=== PATIENT | female | born 1980 | race Caucasian/White ===

== ENCOUNTER 2017-05-03 16:59 | Emergency (ER) | payer SELFPAY ==
[~2017-05-03] VITALS: Ht 160 cm; Wt 100.0 kg
[2017-05-03 17:00] VITALS: BP 142/75; PULSE 84; RESP 16; TEMP 98.4; O2SAT 98
--- NOTE | 2017-05-03 17:20 | PD ---
Physical Exam Date Seen by Provider: May 03, 2017 Time Seen by Provider: 17:17 Narrative 36-year-old female presents the emergency department with lower abdominal discomfort, cramping, radiating into the left flank. Patient has dysuria. She has some nausea but denies vomiting. She denies diarrhea. She denies vaginal symptoms. Last menstrual period was possibly 2 weeks ago. Unsure if she is . Pain is about a 6 out of 10. Urinalysis and urine is ordered. Vital signs are reviewed and patient is awaiting bed placement. Data Data Last Documented VS Vital Signs Date Time Temp Pulse Resp B/P (MAP) Pulse Ox O2 Delivery O2 Flow Rate FiO2 05/03/17 17:00 98.4 84 16 142/75 (97) 98 MDM Medical Record Reviewed: Yes Supervised Visit with YAMILE: Yes Condition: Stable Baljinder Koch May 03, 2017 17:20
[2017-05-03] MEDS ORDERED: KETOROLAC TROMETHAMINE 30 MG/ML (IVP) VIAL IV PUSH ONE (18:00)
[2017-05-03] MEDS ORDERED: SODIUM CHLOR 0.9% 1000 ML INJ 1,000 ML IV ONE (18:00)
--- NOTE | 2017-05-03 18:08 | PD ---
HPI Chief Complaint: Abdominal Pain Time Seen by Provider: 17:46 Travel History International Travel<30 days: No Contact w/Intl Traveler<30days: No Traveled to known affect area: No History of Present Illness HPI Patient is a 36 year old female who comes in complaining of abdominal pain that wraps around from her left flank wrapping into her left lower abdomen. She says it started last night at work and has gotten worse. She has not taken anything for pain. She says she has pain in her suprapubic area when she urinates. She denies any burning with urination. She denies fever or chills. She denies nausea or vomiting. FORMERLY [facility], [facility] Past Medical History Medical History: Denies Significant Hx Tetanus Vaccination: < 5 Years ?: Not LMP: 04/12/2017 Past Surgical History Surgical History: No Previous Surgery Social History Alcohol Use: No Tobacco Use: No Substance Use: No Allergies-Medications (Allergen,Severity, Reaction): Coded Allergies: No Known Allergies (Unverified , 05/03/17) Review of Systems Except as stated in HPI: all other systems reviewed are Neg General / Constitutional: No: Fever, Chills HENT: No: Headaches, Lightheadedness Cardiovascular: No: Chest Pain or Discomfort Respiratory: No: Shortness of Breath Gastrointestinal: Positive: Abdominal Pain, No: Nausea, Vomiting Genitourinary: Positive: Flank Pain, No: Dysuria Musculoskeletal: No: Myalgias, Edema, Pain Skin: No Rash, No Change in Pigmentation Neurologic: No: Weakness, Dizziness Physical Exam Narrative GENERAL: Awake and alert, in no acute distress. SKIN: Focused skin assessment warm/dry. HEAD: Atraumatic. Normocephalic. EYES: Pupils equal and round. No scleral icterus. No injection or drainage. ENT: Mucous membranes pink and moist. NECK: Trachea midline. No JVD. CARDIOVASCULAR: Regular rate and rhythm. No murmur appreciated. RESPIRATORY: No accessory muscle use. Clear to auscultation. Breath sounds equal bilaterally. GASTROINTESTINAL: Abdomen soft, nondistended. Left CVA tenderness, tender to the suprapubic area. No rebound or guarding. MUSCULOSKELETAL: No obvious deformities. No clubbing. No cyanosis. No edema. NEUROLOGICAL: Awake and alert. No obvious cranial nerve deficits. Motor grossly within normal limits. Normal speech. PSYCHIATRIC: Appropriate mood and affect; insight and judgment normal. Data Data Last Documented VS Vital Signs Date Time Temp Pulse Resp B/P (MAP) Pulse Ox O2 Delivery O2 Flow Rate FiO2 05/03/17 17:00 98.4 84 16 142/75 (97) 98 Orders Orders Urinalysis - C+S If Indicated (05/03/17 17:20) Ed Urine Pregnancytest Poc (05/03/17 17:20) Iv Access Insert/Monitor (05/03/17 17:52) Complete Blood Count With Diff (05/03/17 17:52) Comprehensive Metabolic Panel (05/03/17 17:52) Ct Abd/Pel W/O Iv Contrast (05/03/17 ) Sodium Chlor 0.9% 1000 Ml Inj (Ns 1000 M (05/03/17 18:00) Ketorolac Inj (Toradol Inj) (05/03/17 18:00) Us Pelvis Comp W Doppler (05/03/17 ) Labs Laboratory Tests Test 05/03/17 17:26 05/03/17 18:00 Urine Color YELLOW Urine Turbidity HAZY Urine pH 7.0 Urine Specific [place] 1.029 Urine Protein TRACE mg/dL Urine Glucose (UA) NEG mg/dL Urine Ketones NEG mg/dL Urine Occult Blood NEG Urine Nitrite NEG Urine Bilirubin NEG Urine Urobilinogen 2.0 MG/DL Urine Leukocyte Esterase SMALL Urine RBC 1 /hpf Urine WBC 4 /hpf Urine Squamous Epithelial Cells 10 /hpf Urine Bacteria RARE /hpf Urine Mucus FEW /lpf Microscopic Urinalysis Comment CULT NOT INDICATED White Blood Count 8.6 TH/MM3 Red Blood Count 4.69 MIL/MM3 Hemoglobin 12.1 GM/DL Hematocrit 36.9 % Mean Corpuscular Volume 78.8 FL Mean Corpuscular Hemoglobin 25.8 PG Mean Corpuscular Hemoglobin Concent 32.8 % Red Cell Distribution Width 15.6 % Platelet Count 356 TH/MM3 Mean Platelet Volume 8.4 FL Neutrophils (%) (Auto) 64.5 % Lymphocytes (%) (Auto) 26.5 % Monocytes (%) (Auto) 6.8 % Eosinophils (%) (Auto) 1.5 % Basophils (%) (Auto) 0.7 % Neutrophils # (Auto) 5.6 TH/MM3 Lymphocytes # (Auto) 2.3 TH/MM3 Monocytes # (Auto) 0.6 TH/MM3 Eosinophils # (Auto) 0.1 TH/MM3 Basophils # (Auto) 0.1 TH/MM3 CBC Comment DIFF FINAL Differential Comment Blood Urea Nitrogen 10 MG/DL Creatinine 0.74 MG/DL Random Glucose 83 MG/DL Total Protein 8.0 GM/DL Albumin 3.2 GM/DL Calcium Level 9.1 MG/DL Alkaline Phosphatase 73 U/L Aspartate Amino Transf (AST/SGOT) 19 U/L Alanine Aminotransferase (ALT/SGPT) 24 U/L Total Bilirubin 0.6 MG/DL Sodium Level 137 MEQ/L Potassium Level 3.5 MEQ/L Chloride Level 103 MEQ/L Carbon Dioxide Level 28.0 MEQ/L Anion Gap 6 MEQ/L Estimat Glomerular Filtration Rate 88 ML/MIN MDM Medical Decision Making Medical Screen Exam Complete: Yes Emergency Medical Condition: Yes Differential Diagnosis UTI vs pyelonephritis vs renal stone Narrative Course Patient is a 36-year-old female comes in complaining of left-sided abdominal pain. Exam shows tenderness along left lower abdomen as well as the left CVA. IV status, labs sent. Labs show no acute abnormalities. CT of the abdomen and pelvis shows a large ovarian cyst. Ultrasound performed shows the large cyst, no other abnormalities. Patient given IV fluids and Toradol. She reports feeling better. She is advised of the results. Advised follow-up with gynecology. Advised to take ibuprofen as needed for pain. Advised to return to the ED as needed for any worsening symptoms. Last 24 hours Impressions Pelvis Ultrasound 05/03/17 0000 Signed Impressions: Service Date/Time: April 20:06 - CONCLUSION: Relatively large but benign-appearing cyst of the left ovary. If felt clinically indicated , follow up ultrasound suggested an 8-12 weeks to confirm resolution. No torsion or other acute abnormality. Teodoro Dallas MD Abdomen/Pelvis CT 05/03/17 0000 Signed Impressions: Service Date/Time: April 18:22 - CONCLUSION: 1. Large but fairly simple appearing cyst of the left or very. No free fluid or associated inflammatory changes. 2. Otherwise negative noncontrast CT of the abdomen and pelvis. No stones or obstruction demonstrated. Teodoro Dallas MD Diagnosis Primary Impression: Ovarian cyst Qualified Codes: N83.202 - Unspecified ovarian cyst, left side Referrals: Rosenda Verma MD Patient Instructions: General Instructions, Ovarian Cyst (ED) Additional Instructions: You have a large cyst on her left ovary. Follow-up with gynecology, to make sure that this resolves. Return to the ED at any time if he have any worsening symptoms, specifically if you have severe pain in her lower abdomen. Take ibuprofen as needed for pain. Disposition: 01 DISCHARGE HOME Condition: Stable Liyah Ontiveros MD May 03, 2017 18:08
[2017-05-03 18:12] LABS: BACTERIA, URINE RARE /hpf; BLOOD, URINE NEG (NEG); COMMENT (UR) CULT NOT INDICATED; CULTURE IF INDICATED CULT NOT INDICATED; GLUCOSE,URINE NEG (NEG); KETONE, URINE NEG (NEG); MUCUS URINE FEW /lpf (OCC); NITRITE,URINE NEG (NEG); SQUAMOUS EPITHELIAL CELL URINE 10 /hpf (0-5); URINE COLOR YELLOW (YELLW/STRAW)
[2017-05-03 18:42] LABS: AUTOMATED NEUTROPHIL # 5.6 TH/MM3 (1.8-7.7); BASOPHIL # 0.1 TH/MM3 (0-0.2); BASOPHIL % 0.7 % (0.0-2.0); EOSINOPHIL # 0.1 TH/MM3 (0-0.4); EOSINOPHIL % 1.5 % (0.0-4.0); HEMATOCRIT 36.9 % (35.0-46.0); HEMO FLAGS DIFF FINAL; LYMPH % 26.5 % (9.0-44.0); LYMPHOCYTE # 2.3 TH/MM3 (1.0-4.8); MEAN CELL VOLUME 78.8 FL (80.0-100.0); MEAN CORPUSCULAR HEMOGLOBIN 25.8 PG (27.0-34.0); MEAN CORPUSCULAR HGB CONC 32.8 % (32.0-36.0); MONO % 6.8 % (0.0-8.0); NEUT % 64.5 % (16.0-70.0); PLATELET COUNT 356 TH/MM3 (150-450); RED BLOOD COUNT 4.69 MIL/MM3 (4.00-5.30); RED CELL DISTRIBUTION WIDTH 15.6 % (11.6-17.2); WHITE BLOOD COUNT 8.6 TH/MM3 (4.0-11.0)
--- NOTE | 2017-05-03 18:44 | RADRPT ---
EXAM DATE/TIME: 05/03/2017 18:22 [facility] COMPARISON: No previous studies available for comparison. INDICATIONS : Patient complains of left flank pain. ORAL CONTRAST: No oral contrast ingested. RADIATION DOSE: 26.83 CTDIvol (mGy) ; High dose protocol MEDICAL HISTORY : None SURGICAL HISTORY : None. ENCOUNTER: Initial ACUITY: 1 day PAIN SCALE: 8/10 LOCATION: Left flank TECHNIQUE: Volumetric scanning of the abdomen and pelvis was performed. Using automated exposure control and ad justment of the mA and/or kV according to patient size, radiation dose was kept as low as reasonably achievable to obtain optimal diagnostic quality images. DICOM format image data is available electro nically for review and comparison. FINDINGS: LOWER LUNGS: The visualized lower lungs are clear. LIVER: Homogeneous density without lesion. There is no dilation of the biliary tree. No calcified gallston es. SPLEEN: Normal size without lesion. PANCREAS: Within normal limits. KIDNEYS: Normal in size and shape. There is no mass, stone, or hydronephrosis. ADRENAL GLANDS: Within normal limits. VASCULAR: There is no aortic aneurysm. BOWEL/MESENTERY: The stomach, small bowel, and colon demonstrate no acute abnormality. There is no free intraperitone al air or fluid. ABDOMINAL WALL: Within normal limits. RETROPERITONEUM: There is no lymphadenopathy. BLADDER: No wall thickening or mass. REPRODUCTIVE: There is a 5.3 cm cyst of the left ovary. No free fluid. INGUINAL: There is no lymphadenopathy or hernia. MUSCULOSKELETAL: Within normal limits for patient age. CONCLUSION: 1. Large but fairly simple appearing cyst of the left or very. No free fluid or associated inflammato ry changes. 2. Otherwise negative noncontrast CT of the abdomen and pelvis. No stones or obstruction demonstrated . Teodoro Dallas MD on May 03, 2017 at 18:41 Board Certified Radiologist. This report was verified electronically.
[2017-05-03 18:57] LABS: ANION GAP 6 MEQ/L (5-15); AST (GOT) 19 U/L (15-37); BLOOD UREA NITROGEN 10 MG/DL (7-18); CHLORIDE 103 MEQ/L (98-107); GLOMERULAR FILTRATION RATE 88 ML/MIN (>89); POTASSIUM 3.5 MEQ/L (3.5-5.1); SODIUM (NA) 137 MEQ/L (136-145)
[2017-05-03 18:58] LABS: ALT (GPT) 24 U/L (10-53)
[2017-05-03 19:00] LABS: ALKALINE PHOSPHATASE 73 U/L (45-117); TOTAL BILIRUBIN ADULT 0.6 MG/DL (0.2-1.0)
--- NOTE | 2017-05-03 20:50 | RADRPT ---
EXAM DATE/TIME: 05/03/2017 20:06 [facility] COMPARISON: CT ABDOMEN & PELVIS W/O CONTRAST, May 03, 2017, 18:22. INDICATIONS : Left sided pelvic pain. MEDICAL HISTORY : Pelvic pain. Nausea. SURGICAL HISTORY : None. ENCOUNTER: Initial ACUITY: 1 day PAIN SCORE: 8/10 LOCATION: Bilateral pelvis MEASUREMENTS: UTERUS: 10.1 x 5.2 x 4.9 cm ENDOMETRIAL STRIPE: 10 mm RIGHT OVARY: 4.0 x 2.3 x 1.5 cm LEFT OVARY: 8.0 x 5.5 x 5.0 cm FINDINGS: UTERUS: The myometrium has homogeneous echotexture without mass. RIGHT OVARY: Ovary contains no mass or significant cystic lesion. Doppler interrogation indicates blood flow prese nt. LEFT OVARY: 4.9 x 4.3 x 4.9 cm cyst noted. Blood flow present. MISCELLANEOUS: No free fluid. CONCLUSION: Relatively large but benign-appearing cyst of the left ovary. If felt clinically indicated, follow up ultrasound suggested an 8-12 weeks to confirm resolution. No torsion or other acute abnormality. Teodoro Dallas MD on May 03, 2017 at 20:47 Board Certified Radiologist. This report was verified electronically.
== END 2017-05-03 21:20 | disposition home or self-care (01) ==
LOC: NEPD 16:59
DX: N83.202 Unspecified ovarian cyst, left side (principal); R30.0 Dysuria; R11.0 Nausea
CPT/HCPCS: 74176; 76856; 80053; 81001; 84703; 85025; 93975; 96361; 96374; 99285; J1885; J7030

== ENCOUNTER 2017-05-28 13:54 | Emergency (ER) | payer SELFPAY ==
[~2017-05-28] VITALS: Ht 160 cm; Wt 95.0 kg
[2017-05-28 13:56] VITALS: BP 141/87; PULSE 77; RESP 18; TEMP 98.4; O2SAT 97
--- NOTE | 2017-05-28 15:59 | PD ---
HPI Chief Complaint: Musculoskeletal Complaint Time Seen by Provider: 15:59 Travel History International Travel<30 days: No Contact w/Intl Traveler<30days: No Traveled to known affect area: No History of Present Illness HPI 36-year-old female presents to emergency department for evaluation of the left flank pain radiating to her abdomen worsening of the last 2 weeks. It has been intermittent, mild. Denies nausea or vomiting. No fever or chills. Denies any injury. States that it has been burning when she urinates. Her urine is darker color. Denies any vaginal discharge or bleeding. No other symptoms to report. PFSH Past Medical History Medical History: Denies Significant Hx ?: Unknown Social History Alcohol Use: No Tobacco Use: No Substance Use: No Allergies-Medications (Allergen,Severity, Reaction): Coded Allergies: No Known Allergies (Unverified , 05/03/17) Reported Meds & Prescriptions Reported Meds & Active Scripts Active Naproxen 500 Mg Tab 500 Mg PO BID PRN Keflex (Cephalexin) 500 Mg Cap 500 Mg PO Q12H 7 Days Review of Systems Except as stated in HPI: all other systems reviewed are Neg Physical Exam Narrative GENERAL: Well-nourished, well-developed female patient, ambulatory no acute distress. SKIN: Focused skin assessment warm/dry. HEAD: Normocephalic. EYES: No scleral icterus. No injection or drainage. NECK: Supple, trachea midline. No JVD or lymphadenopathy. CARDIOVASCULAR: Regular rate and rhythm without murmurs, gallops, or rubs. RESPIRATORY: Breath sounds equal bilaterally. No accessory muscle use. GASTROINTESTINAL: Abdomen soft, non-tender, nondistended. No guarding. No rebound tenderness. MUSCULOSKELETAL: No cyanosis, or edema. No CVA tenderness. BACK: Nontender without obvious deformity. No CVA tenderness. Data Data Last Documented VS Vital Signs Date Time Temp Pulse Resp B/P (MAP) Pulse Ox O2 Delivery O2 Flow Rate FiO2 05/28/17 16:34 05/28/17 13:56 98.4 77 18 97 Orders Orders Urinalysis - C+S If Indicated (05/28/17 15:48) Gc And Chlamydia Pcr (05/28/17 16:28) Ed Discharge Order (05/28/17 16:30) Labs Laboratory Tests Test 05/28/17 16:00 Urine Color YELLOW Urine Turbidity CLOUDY Urine pH 5.5 Urine Specific [place] 1.029 Urine Protein TRACE mg/dL Urine Glucose (UA) NEG mg/dL Urine Ketones NEG mg/dL Urine Occult Blood TRACE Urine Nitrite NEG Urine Bilirubin NEG Urine Urobilinogen LESS THAN 2.0 MG/DL Urine Leukocyte Esterase LARGE Urine RBC 13 /hpf Urine WBC 5 /hpf Urine Squamous Epithelial Cells 12 /hpf Urine Bacteria OCC /hpf Urine Mucus MANY /lpf Microscopic Urinalysis Comment CULT NOT INDICATED MDM Medical Decision Making Medical Screen Exam Complete: Yes Emergency Medical Condition: Yes Medical Record Reviewed: Yes Differential Diagnosis Renal colic versus renal calculi versus UTI versus muscle strain versus discogenic pain Narrative Course 36-year-old female reasons to the emergency department for evaluation of left flank pain for the last 2 weeks. Patient appears without distress. Abdominal exam is benign. There is no CVA tenderness. Urine will be sent for evaluation. Laboratory Tests Test 05/28/17 16:00 Urine Color YELLOW Urine Turbidity CLOUDY Urine pH 5.5 Urine Specific [place] 1.029 Urine Protein TRACE mg/dL Urine Glucose (UA) NEG mg/dL Urine Ketones NEG mg/dL Urine Occult Blood TRACE Urine Nitrite NEG Urine Bilirubin NEG Urine Urobilinogen LESS THAN 2.0 MG/DL Urine Leukocyte Esterase LARGE Urine RBC 13 /hpf Urine WBC 5 /hpf Urine Squamous Epithelial Cells 12 /hpf Urine Bacteria OCC /hpf Urine Mucus MANY /lpf Microscopic Urinalysis Comment CULT NOT INDICATED Despite urine culture not being indicated, patient is having symptoms of dysuria. She may have a renal calculi but at this time and I think CT is warranted. She'll be started on Keflex. She is encouraged to maintain adequate oral hydration and follow-up with primary care provider. She agrees to return immediately with any acute worsening of symptoms. Diagnosis Primary Impression: Left flank pain Additional Impression: UTI (urinary tract infection) Qualified Codes: N30.01 - Acute cystitis with hematuria Referrals: Primary Care Physician Patient Instructions: Flank Pain (ED), General Instructions, Urinary Tract Infection in Women (ED) Additional Instructions: Maintain adequate oral hydration Follow-up with a primary care provider Return immediately with any acute worsening of symptoms Med/Other Pt SpecificInfo: Prescription(s) given Scripts Naproxen (Naproxen) 500 Mg Tab 500 MG PO BID Y for PAIN SCALE 1 TO 10, #30 TAB 0 Refills Prov: Pepper Joaquin 05/28/17 Cephalexin (Keflex) 500 Mg Cap 500 MG PO Q12H for Infection for 7 Days, #14 CAP 0 Refills Prov: Pepper Joaquin 05/28/17 Disposition: 01 DISCHARGE HOME Condition: Stable Pepper Joaquin May 28, 2017 15:59
[2017-05-28 16:24] LABS: BACTERIA, URINE OCC /hpf; BLOOD, URINE TRACE (NEG); COMMENT (UR) CULT NOT INDICATED; CULTURE IF INDICATED CULT NOT INDICATED; GLUCOSE,URINE NEG (NEG); KETONE, URINE NEG (NEG); MUCUS URINE MANY /lpf (OCC); NITRITE,URINE NEG (NEG); PH, URINE 5.5 (5.0-8.5); SQUAMOUS EPITHELIAL CELL URINE 12 /hpf (0-5); URINE COLOR YELLOW (YELLW/STRAW)
[2017-05-28] MEDS ORDERED: CEPH-460 PO (16:30)
[2017-05-28] MEDS ORDERED: NAPR500T PO (16:30)
[2017-05-29 01:07] LABS: CHLAMYDIA PCR NOT DETECTED (NOT DETECT); NEISSERIA PCR NOT DETECTED (NOT DETECT)
== END 2017-05-28 16:35 | disposition home or self-care (01) ==
LOC: NEPK 13:54
DX: N30.01 Acute cystitis with hematuria (principal)
CPT/HCPCS: 81001; 87491; 87591; 99283

== ENCOUNTER 2017-11-14 19:49 | Emergency (ER) | payer SELFPAY ==
[~2017-11-14] VITALS: Ht 160 cm; Wt 100.0 kg
[~2017-11-14 19:49] MED LIST: CEPH-460 PO; NAPR500T2 PO
[2017-11-14 21:31] VITALS: BP 147/64; PULSE 99; TEMP 100.3; O2SAT 98
[2017-11-14] MEDS ORDERED: ACETAMINOPHEN 325 MG TAB PO ONE (23:15)
[2017-11-14] MEDS ORDERED: ONDANSETRON ODT 4 MG TAB PO ONE (23:15)
--- NOTE | 2017-11-14 23:21 | PD ---
HPI Chief Complaint: Cold / Flu Symptoms Time Seen by Provider: 22:40 Travel History International Travel<30 days: No Contact w/Intl Traveler<30days: No Traveled to known affect area: No History of Present Illness HPI Patient is a 36-year-old female otherwise healthy presents emergency department for evaluation of fever cough congestion as well as some mild nausea without vomiting. Patient states she did not have a flu shot this year. States symptoms been starting since yesterday, nonbloody non-melanous stools which are loose. No chest pain no shortness of breath. No vaginal bleeding no vaginal discharge. Patient states she is unknown that she is . States symptoms are moderate, gradually worsening, since yesterday, context and associated signs and symptoms as above per [facility] Past Medical History Immunizations Current: Yes Tetanus Vaccination: < 5 Years Influenza Vaccination: Yes ?: Not LMP: 11/05/17 Social History Alcohol Use: No Tobacco Use: No Substance Use: No Allergies-Medications (Allergen,Severity, Reaction): Coded Allergies: No Known Allergies (Unverified Adverse Reaction, Unknown, 11/14/17) Reported Meds & Prescriptions Reported Meds & Active Scripts Active Zofran (Ondansetron HCl) 4 Mg Tab 4 Mg PO Q6HR PRN Tamiflu (Oseltamivir Phosphate) 75 Mg Cap 75 Mg PO BID 5 Days Review of Systems Except as stated in HPI: all other systems reviewed are Neg Physical Exam Narrative GENERAL: Well-developed well-nourished no obvious distress, overweight peer SKIN: Focused skin assessment warm/dry. HEAD: Atraumatic. Normocephalic. EYES: Pupils equal and round. No scleral icterus. No injection or drainage. ENT: No nasal bleeding or discharge. Mucous membranes pink and moist. TMs clear bilaterally, oropharynx clear moist peer NECK: Trachea midline. No JVD. CARDIOVASCULAR: Regular rate and rhythm. No murmur appreciated. RESPIRATORY: No accessory muscle use. Clear to auscultation. Breath sounds equal bilaterally. GASTROINTESTINAL: Abdomen soft, non-tender, nondistended. Hepatic and splenic margins not palpable. MUSCULOSKELETAL: No obvious deformities. No clubbing. No cyanosis. No edema. NEUROLOGICAL: Awake and alert. No obvious cranial nerve deficits. Motor grossly within normal limits. Normal speech. PSYCHIATRIC: Appropriate mood and affect; insight and judgment normal. Data Data Last Documented VS Vital Signs Date Time Temp Pulse Resp B/P (MAP) Pulse Ox O2 Delivery O2 Flow Rate FiO2 11/14/17 21:31 100.3 99 147/64 (91) 98 Orders Orders Acetaminophen (Tylenol) (11/14/17 23:15) Ondansetron Odt (Zofran Odt) (11/14/17 23:15) Urinalysis - C+S If Indicated (11/14/17 23:09) Ed Urine Pregnancytest Poc (11/14/17 23:09) Ed Discharge Order (11/14/17 23:53) Labs Laboratory Tests Test 11/14/17 23:15 Urine Color LIGHT-YELLOW Urine Turbidity HAZY Urine pH 7.0 Urine Specific [place] 1.009 Urine Protein NEG mg/dL Urine Glucose (UA) NEG mg/dL Urine Ketones NEG mg/dL Urine Occult Blood NEG Urine Nitrite NEG Urine Bilirubin NEG Urine Urobilinogen LESS THAN 2.0 MG/DL Urine Leukocyte Esterase SMALL Urine RBC 6 /hpf Urine WBC 5 /hpf Urine Squamous Epithelial Cells 24 /hpf Urine Amorphous Sediment RARE Urine Bacteria OCC /hpf Microscopic Urinalysis Comment CULT NOT INDICATED MDM Medical Decision Making Medical Screen Exam Complete: Yes Emergency Medical Condition: Yes Differential Diagnosis Influenza-like illness, URI, pneumonia is highly unlikely, , UTI. Narrative Course Patient room to the emergency department, sign symptoms bhavana to influenza-like illness, given the high likelihood of false negatives at our institution I suggested the patient have empiric therapy with Tamiflu Zofran. She is test negative and UA was negative here in the emergency department. I discussed need follow-up with her primary care physician symptomatic management return to ED criteria. She otherwise appears well and is not in any obvious distress and therefore she is stable for discharge. Diagnosis Primary Impression: Influenza Patient Instructions: General Instructions, H1N1 Influenza (DC) Med/Other Pt SpecificInfo: Prescription(s) given Scripts Ondansetron (Zofran) 4 Mg Tab 4 MG PO Q6HR Y for NAUSEA OR VOMITING, #20 TAB 0 Refills Prov: Randy Angel MD 11/14/17 Oseltamivir (Tamiflu) 75 Mg Cap 75 MG PO BID for Mgmt Viral Infection for 5 Days, #10 CAP 0 Refills Prov: Randy Angel MD 11/14/17 Disposition: 01 DISCHARGE HOME Condition: Stable Randy Angel MD Nov 14, 2017 23:21
[2017-11-14 23:41] LABS: AMORPHOUS SEDIMENT, URINE RARE; BACTERIA, URINE OCC /hpf; BILIRUBIN, URINE NEG (NEG); BLOOD, URINE NEG (NEG); GLUCOSE,URINE NEG (NEG); KETONE, URINE NEG (NEG); NITRITE,URINE NEG (NEG); SQUAMOUS EPITHELIAL CELL URINE 24 /hpf (0-5); URINE COLOR LIGHT-YELLOW (YELLW/STRAW); URINE LEUKOCYTE ESTERASE SMALL (NEG)
[2017-11-14] MEDS ORDERED: OSEL75 PO (23:52)
[2017-11-14] MEDS ORDERED: ZOFR4TAB PO (23:52)
== END 2017-11-15 00:03 | disposition home or self-care (01) ==
LOC: NEPE 19:49
DX: J11.1 Influenza due to unidentified influenza virus with other respiratory manifestations (principal)
CPT/HCPCS: 81001; 84703; 99283